=== PATIENT | female | born 1960 | race Caucasian/White ===

== ENCOUNTER 2023-10-12 04:56 | Emergency (ER) | payer BC ==
--- NOTE | 2023-10-12 05:05 | ED Physician Documentation ---
History of Present Illness - Stated complaint Stated Complaint: RASH/ TROUBLE SWALLOWING - History obtained from History obtained from: Patient - Additonal information Additional information: HPI from patient. Patient c/o rash since yesterday morning, mildly pruritic. Initially noted on bilateral upper/inner thighs but has subsequently, gradually spread to most of the rest of her body. Denies h/o similar rash. Denies dyspnea, wheezing, cough, chest/throat tightness, swelling of lips/tongue/throat. Patient had recent root canal for which she received rx Tylenol #3 and clindamycin (has already finished course of clindamycin). Patient receives keytruda as chemotherapy for cervical CA Q6 weeks for few years most recently approximately 1.5 weeks ago. No new medications aside from the T#3 and clindamycin but the rash started just as she was finishing the clindamycin. Review of Systems Constitutional: denies: Fever, Chills, Sweats Cardiac: reports: Reviewed and negative Respiratory: reports: Reviewed and negative GI: reports: Reviewed and negative : denies: Dysuria, Frequency, Hematuria Skin: reports: Rash Musculoskeletal: denies: Back pain Neurologic: denies: Headache PD PAST MEDICAL HISTORY - Past Medical History Past Medical History: Yes Other Past Medical History: cervical CA - Present Medications Home Medications: Ambulatory Orders Medication Instructions Recorded Confirmed No Known Home Medications 10/12/23 10/12/23 - Allergies Allergies/Adverse Reactions: Allergies Allergy/AdvReac Type Severity Reaction Status Date / Time amoxicillin Allergy Rash Verified 10/12/23 05:17 ampicillin Allergy Rash Verified 10/12/23 05:17 Penicillins Allergy Rash Verified 10/12/23 05:16 PD ED PE NORMAL - Vitals Vital signs reviewed: Yes - General General: Alert and oriented X 3, No acute distress, Well developed/nourished - HEENT HEENT: Moist mucous membranes - Neck Neck: Supple, no meningeal sign - Cardiac Cardiac: RRR, No murmur - Respiratory Respiratory: No respiratory distress, Clear bilaterally - Abdomen Abdomen: Soft, Non tender - Extremities Extremities: No edema - Neuro Neuro: Alert and oriented X 3 PD ED PE EXPANDED - Derm Derm: Rash (Diffuse exanthem: discrete, flat erythematous papules, some with immediately surrounding blanching. Most lesions reva although others do not. None of the lesions are tender and there is no confluence. No definitive lesions on either palms nor soles. ) Results - Vitals Vitals: Oxygen O2 Source Room air - Labs Labs: Laboratory Tests 10/12/23 10/12/23 10/12/23 06:07 06:07 06:15 WBC 3.7 L RBC 3.98 L Hgb 13.0 Hct 38.5 MCV 96.7 MCH 32.7 H MCHC 33.8 RDW 12.7 Plt Count 178 MPV 9.3 Neut # (Auto) 2.7 Lymph # (Auto) 0.4 L [place] # (Auto) 0.3 Eos # (Auto) 0.1 Baso # (Auto) 0.0 Absolute Nucleated RBC 0.00 Nucleated RBC % 0.0 Sodium 139 Potassium 3.7 Chloride 104 Carbon Dioxide 29 Anion Gap 6.0 BUN 24 H Creatinine 0.8 Estimated GFR (MDRD) 72 L Glucose 105 H Calcium 9.5 Total Bilirubin 0.7 AST 14 ALT 11 Alkaline Phosphatase 40 L Total Protein 6.2 L Albumin 4.1 Globulin 2.1 Albumin/Globulin Ratio 2.0 Urine Color LT. YELLOW Urine Clarity CLEAR Urine pH 7.0 Ur Specific [place] <=1.005 Urine Protein NEGATIVE Urine Glucose (UA) NEGATIVE Urine Ketones NEGATIVE Urine Occult Blood NEGATIVE Urine Nitrite NEGATIVE Urine Bilirubin NEGATIVE Urine Urobilinogen 0.2 (NORMAL) Ur Leukocyte Esterase NEGATIVE Ur Microscopic Review NOT INDICATED Urine Culture Comments NOT INDICATED PD Medical Decision Making - ED course Complexity details: reviewed results, re-evaluated patient, considered differential, d/w patient ED course: No concerning findings on CBC (mild leukopenia although patient says she knows she has mildly low WBC on recent, previous results). Mildly elevated BUN with normal creatinine (patient also indicates to me that she has been told of this pattern before). Normal UA. Etiology of her exanthem is not apparent at this time. Does not appear to be c/w hives/urticaria, and minimal pruritic component further suggests against allergic reaction. Some elements of the exanthem on exam would suggest vasculitis; leukocytoclastic vasculitis is considered, with recent clindamycin a possible etiology (in which case the offending agent has already been discontinued). I d/w patient that there is not a confident underlying cause of her exanthem from my standpoint, although exam and test results at this time would suggest against a specific and/or dangerous cause. Return precautions reviewed and I instructed her to seek follow up with PCP , next available appointment, for reevaluation. Departure - Departure Disposition: 01 Home, Self Care Clinical Impression: Rash Condition: Good Instructions: ED Erythema Follow-Up: SHARAN TAY DO [Primary Care Provider] - Comments: There were no concerning findings on tonight's blood tests nor urinalysis. As we discussed, your white blood cell count was slightly below the normal range. Your BUN was slightly elevated but your creatinine is normal. You have indicated that both you white blood cell count and BUN findings are not new for you. The cause of your rash is not apparent at this time. As we discussed, one of the diagnoses I would consider would be a type of vasculitis (leukocytoclastic vasculitis) that can be due to a number of different causes such as your recent course of clindamycin; this is not a true allergic reaction, and often will go away within days (although sometimes takes a week or more) after the causative medication is stopped. Contact your primary care provider to arrange for next available appointment for reevaluation; your primary care provider can refer you to a primary care sales representative for further evaluation if necessary. Forms: PCP List Discharge Date/Time: 10/12/23 08:39
[2023-10-12 06:23] VITALS: O2SAT 100
[2023-10-12 06:38] LABS: BILIRUBIN,URINE NEGATIVE (NEGATIVE); GLUCOSE, URINE (UA) NEGATIVE (NEGATIVE); KETONES,URINE (UA) NEGATIVE (NEGATIVE); LEUKOCYTE ESTERASE, URINE NEGATIVE (NEGATIVE); NITRITE,URINE NEGATIVE (NEGATIVE); OCCULT BLOOD,URINE NEGATIVE (NEGATIVE); PROTEIN,URINE NEGATIVE (NEGATIVE); UROBILINOGEN,URINE 0.2 (NORMAL) E.U./dL (NORMAL)
[2023-10-12 06:40] LABS: BASOPHILS % (AUTO) 0.8 %; EOSINOPHILS # (AUTO) 0.1 10^3/uL (0.0-0.7); EOSINOPHILS % (AUTO) 3.8 %; HCT - HEMATOCRIT 38.5 % (37.0-47.0); LYMPHOCYTES # (AUTO) 0.4 10^3/uL (1.5-3.5); LYMPHOCYTES % (AUTO) 11.7 %; MEAN CORPUSCULAR HEMOGLOBIN 32.7 pg (27.0-31.0); MEAN CORPUSCULAR HGB CONC 33.8 g/dL (32.0-36.0); MEAN CORPUSCULAR VOLUME 96.7 fL (81.0-99.0); MEAN PLATELET VOLUME 9.3 fL (7.9-10.8); MONOCYTES # (AUTO) 0.3 10^3/uL (0.0-1.0); NEUTROPHILS # (AUTO) 2.7 10^3/uL (1.5-6.6); NEUTROPHILS % (AUTO) 74.4 %; PLT - PLATELET COUNT 178 10^3/uL (130-450); RED BLOOD COUNT 3.98 10^6/uL (4.20-5.40); RED CELL DISTRIBUTION WIDTH 12.7 % (12.0-15.0); WHITE BLOOD COUNT 3.7 x10^3/uL (4.8-10.8)
[2023-10-12 06:44] LABS: CLARITY,URINE CLEAR (CLEAR)
[2023-10-12 06:50] LABS: ALBUMIN 4.1 g/dL (3.2-5.5); BILIRUBIN,TOTAL 0.7 mg/dL (0.2-1.0); CALCIUM 9.5 mg/dL (8.5-10.3); CREATININE 0.8 mg/dL (0.6-1.3); POTASSIUM 3.7 mmol/L (3.5-4.5); TOTAL PROTEIN 6.2 g/dL (6.4-8.9)
[2023-10-12 08:46] VITALS: BP 118/76
== END 2023-10-12 08:39 | disposition home or self-care (01) ==
LOC: ED 04:56
DX: R21 Rash and other nonspecific skin eruption (principal); C53.9 Malignant neoplasm of cervix uteri, unspecified; Z79.60 Long term (current) use of unspecified immunomodulators and immunosuppressants
CPT/HCPCS: 36415; 80053; 81001; 81003; 85025; 87086; 99283